=== PATIENT | male | born 1955 | race Caucasian/White ===

== ENCOUNTER 2016-12-21 13:18 | Observation (INO) | payer OTHER ==
[2016-12-21] MEDS ORDERED: ASPIRIN 81 MG TABLET, CHEWABLE PO ONE ×2 (13:31)
[2016-12-21] MEDS ORDERED: REGADENOSON INJ 0.4 MG/5 ML DISP.SYRIN IV ONE (13:42)
--- NOTE | 2016-12-21 13:42 | ER Document Report ---
ED General - General Chief Complaint: Chest Pain Stated Complaint: CHEST PAIN Mode of Arrival: Medic Information source: Patient Notes: Patient presents to the emergency department with complaints of dizziness vomiting and diaphoresis. Patient reports he woke up this morning with right sided neck and jaw pain. 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 While he was outside he became really dizzy, he sat down and the dizziness went away. He ran out of gas so he went to get gas and by the time he got home he was severely dizzy, felt like he was going to pass out. He sat on on on his porch and started vomiting and became very sweaty. Patient has a history of high blood pressure COPD diabetes and high cholesterol. Patient does smoke 1 ppd. Patient reports mom and dad are with a history of CAD. Patient reports "I'm not having any chest pain." TRAVEL OUTSIDE OF THE [place] IN LAST 30 DAYS: No - HPI Onset: Just prior to arrival Onset/Duration: Sudden Quality of pain: No pain - denies pain at this time Severity: None Associated symptoms: Nausea, Vomiting, Other - dizziness Exacerbated by: Denies Relieved by: Denies Similar symptoms previously: No Recently seen / treated by doctor: No - Related Data Allergies/Adverse Reactions: Sulfa (Sulfonamide Antibiotics) Allergy (Intermediate, Verified 12/21/16 15:11) RASH Past Medical History - General Information source: Patient - Social History Smoking Status: Current Every Day Smoker Cigarette use (# per day): Yes - 1 ppd Chew tobacco use (# tins/day): No Frequency of alcohol use: None Drug Abuse: None Lives with: Family Family History: CAD Patient has suicidal ideation: No Patient has homicidal ideation: No - Past Medical History Cardiac Medical History: Reports: Hx Hypercholesterolemia, Hx Hypertension Denies: Hx Coronary Artery Disease, Hx Heart Attack Pulmonary Medical History: Reports: Hx COPD Denies: Hx Asthma, Hx Bronchitis, Hx Pneumonia, Hx Tuberculosis Neurological Medical History: Denies: Hx Cerebrovascular Accident, Hx Seizures Endocrine Medical History: Reports: Hx Diabetes Mellitus Type 2 Renal/ Medical History: Reports: Hx Kidney Stones GI Medical History: Reports: Hx Gastroesophageal Reflux Disease, Hx Hiatal Hernia, Hx Ulcer - Peptic Musculoskeltal Medical History: Denies Hx Arthritis Past Surgical History: Reports: Hx Appendectomy, Hx Cholecystectomy. Denies: Hx Pacemaker - Immunizations Hx Diphtheria, Pertussis, Tetanus Vaccination: Yes Review of Systems - Review of Systems Notes: Review HPI for review of systems., All other systems negative Physical Exam - Vital signs Vitals: Resp 20 12/21/16 13:30 - Notes Notes: PHYSICAL EXAMINATION: GENERAL: no acute distress, nontoxic looking HEAD: Atraumatic, normocephalic. EYES: Pupils equal round extraocular movements intact, sclera anicteric, conjunctiva are normal. ENT: nares patent, oropharynx clear without exudates. Moist mucous membranes. NECK: Normal range of motion, supple without lymphadenopathy LUNGS: CTAB and equal. No wheezes rales or rhonchi. HEART: Tachy, denies chest pain ABDOMEN: Soft, no tenderness. No guarding, no rebound BACK: Denies pain, denies flank pain EXTREMITIES: Normal range of motion, no pitting edema. No cyanosis. NEUROLOGICAL: Cranial nerves grossly intact. Normal sensory/motor exams. PSYCH: Normal mood, normal affect. SKIN: Warm, Dry, normal turgor, no rashes or lesions noted Course - Re-evaluation Re-evalutation: 12/21/16 16:51 I have consulted the attending provider dr early per [facility] guidelines Patient reports he feels great now ready to go home. Denies pain and dizziness , Patient with elevated d-dimer CTA ordered after consult with dr early. 12/21/16 18:18 Dr. Briceño contacted for admission to telemetry ops. Patient up-to-date on plan of care. 12/21/16 18:22 Dr. Briceño here assessing patient. - Vital Signs Vital signs: Temp Pulse Resp BP Pulse Ox 98.1 F 82 21 H 135/86 H 92 12/21/16 18:45 12/21/16 13:35 12/21/16 18:45 12/21/16 18:45 12/21/16 18:45 - Laboratory Result Diagrams: 12/21/16 13:50 12/21/16 13:50 Laboratory results interpreted by me: 12/21/16 12/21/16 12/21/16 13:50 13:50 13:50 WBC 13.2 H RDW 14.7 H Seg Neutrophils % 85.7 H Lymphocytes % 5.8 L Absolute Neutrophils 11.3 H D-Dimer 0.85 H BUN 29 H Alkaline Phosphatase 147 H Creatine Kinase 38 L Urine Protein Urine Ketones Urine Blood 12/21/16 15:20 WBC RDW Seg Neutrophils % Lymphocytes % Absolute Neutrophils D-Dimer BUN Alkaline Phosphatase Creatine Kinase Urine Protein 100 H Urine Ketones 25 H Urine Blood LARGE H - Diagnostic Test Radiology reviewed: Image reviewed, Reports reviewed - IMPRESSION: NO ACUTE RADIOGRAPHIC FINDING IN THE CHEST - EKG Interpretation by Me EKG shows normal: Sinus rhythm When compared to previous EKG there are: No significant change Discharge - Discharge Clinical Impression: Dizziness Condition: Stable Disposition: ADMITTED OBSERVATION Admitting Provider: [facility] Unit Admitted: Telemetry
[2016-12-21 14:05] LABS: ABSOLUTE BASOPHILS # (AUTO) 0.1 10^3/uL (0.0-0.2); ABSOLUTE EOSINOPHILS # (AUTO) 0.1 10^3/uL (0.0-0.6); ABSOLUTE LYMPHOCYTES (AUTO) 0.8 10^3/uL (0.5-4.7); ABSOLUTE MONOCYTES (AUTO) 0.9 10^3/uL (0.1-1.4); ABSOLUTE NEUT (AUTO) 11.3 10^3/uL (1.7-8.2); BASOPHILS % (AUTO) 0.9 % (0-2); EOSINOPHILS % (AUTO) 0.9 % (0-6); HEMATOCRIT 46.7 % (37.9-51.0); HEMOGLOBIN 15.9 g/dL (13.5-17.0); LYMPHOCYTES % (AUTO) 5.8 % (13-45); MEAN CORPUSCULAR HEMOGLOBIN 29.2 pg (27.0-33.4); MEAN CORPUSCULAR HGB CONC 34.1 g/dL (32.0-36.0); MEAN CORPUSCULAR VOLUME 86 fl (80-97); MONOCYTES % (AUTO) 6.7 % (3-13); RED BLOOD COUNT 5.45 10^6/uL (4.35-5.55); RED CELL DISTRIBUTION WIDTH 14.7 % (11.5-14.0); SEGMENTED NEUTROPHILS % (AUTO) 85.7 % (42-78); WHITE BLOOD COUNT 13.2 10^3/uL (4.0-10.5)
[2016-12-21 14:20] LABS: PROTHROMBIN TIME 12.7 SEC (11.4-15.4)
[2016-12-21 14:21] LABS: PARTIAL THROMBOPLASTIN TIME 30.8 SEC (23.5-35.8)
[2016-12-21 14:23] LABS: D-DIMER 0.85 ug/mL (0.00-0.50)
[2016-12-21 14:25] LABS: ALANINE AMINOTRANSFERASE 26 U/L (21-72); ALBUMIN 4.2 g/dL (3.5-5.0); ALKALINE PHOSPHATASE 147 U/L (38-126); ANION GAP 12 (5-19); ASPARTATE AMINO TRANSFERASE 19 U/L (17-59); BILIRUBIN,TOTAL 0.5 mg/dL (0.2-1.3); BLOOD UREA NITROGEN 29 mg/dL (7-20); CARBON DIOXIDE 26 mmol/L (22-30); CHLORIDE 103 mmol/L (98-107); CREATINE KINASE 38 U/L (55-170); CREATININE RESULT 0.73 mg/dL (0.52-1.25); GLUCOSE 94 mg/dL (75-110); LIPASE 122.6 U/L (23-300); SODIUM 141.3 mmol/L (137-145)
[2016-12-21 14:31] LABS: POTASSIUM 4.4 mmol/L (3.6-5.0)
[2016-12-21 14:34] LABS: CREATINE KINASE MB 0.56 ng/mL (<4.55)
[2016-12-21 14:35] LABS: TROPONIN I < 0.012 ng/mL
[2016-12-21 15:44] LABS: APPEARANCE,URINE CLEAR; BILIRUBIN,URINE NEGATIVE (NEGATIVE); CALCIUM OXALATE CRYSTALS,URINE RARE /HPF; GLUCOSE, URINE NEGATIVE (NEGATIVE); KETONES,URINE 25 mg/dL (NEGATIVE); LEUKOCYTE ESTERASE,URINE NEGATIVE (NEGATIVE); NITRITE,URINE NEGATIVE (NEGATIVE); PROTEIN,URINE 100 mg/dL (NEGATIVE); UROBILINOGEN,URINE NEGATIVE mg/dL (<2.0)
[2016-12-21 15:45] LABS: URINE SPECIFIC GRAVITY 1.024
--- NOTE | 2016-12-21 17:40 | EKG REPORT ---
SEVERITY:- ABNORMAL ECG - SINUS OR ECTOPIC ATRIAL RHYTHM NONSPECIFIC INTRAVENTRICULAR CONDUCTION DELAY CONSIDER LEFT VENTRICULAR HYPERTROPHY BORDERLINE INFERIOR Q WAVES : Confirmed by: Amos Hill MD 21-Dec-2016 17:38:54
[2016-12-21] MEDS ORDERED: DEXTROSE 40% GEL 15 GM TUBE PO PRN ×2 (18:43)
[2016-12-21] MEDS ORDERED: DEXTROSE 50%-WATER 25 GM/50 ML DISP.SYRIN IV PRN ×2 (18:43)
[2016-12-21] MEDS ORDERED: IPRATROPIUM/ALBUTEROL 0.5-2.5 MG/3 ML AMPUL NEB PRN (18:43)
[2016-12-21] MEDS ORDERED: GLUCAGON,HUMAN RECOMB 1 MG INJ IM PRN (18:43)
[2016-12-21] MEDS ORDERED: ACETAMINOPHEN 325 MG TABLET PO PRN (18:43)
[2016-12-21] MEDS ORDERED: ONDANSETRON HCL INJ/PF 4 MG/2 ML SDV IV PRN (18:49)
[2016-12-21] MEDS ORDERED: MAGNESIUM HYDROXIDE SUSP 30 ML UDCUP PO PRN (18:49)
[2016-12-21] MEDS ORDERED: INSULIN LISPRO 100 UNIT/ML 3 ML VIAL SUBCUT PRN (18:49)
--- NOTE | 2016-12-21 19:08 | PDOC H&P ---
History of Present Illness Admission Date/PCP: 12/21/16 18:25 SHAHID BREWER Patient complains of: Dizziness History of Present Illness: BRENDON PAK is a 61 year old male presents from home with sudden onset of dizziness 2 and associated diaphoresis, palpitations, nausea with vomiting and palpitations. He states the second episode was far more intense the first lasted much longer until EMS arrived and he was given a nitroglycerin. He's ever had anything like this before. He was diagnosed with new onset diabetes in the last 2 weeks and started on metformin Kaylan, he notes nausea vomiting and diarrhea the first few days after taking the medication. He thought the symptoms were improving until today. He also notes that at the time of the first episode he was then using a log splitter autopilot firewood he had created yesterday. He denies true cardiac type chest pain but he does note his right neck and shoulder and arm are hurting he attributed that to right hand dominance using the chainsaw yesterday. Evaluation in the emergency department is largely unrevealing, his blood sugar was 94, 2 sets of cardiac enzymes are negative, EKG is nondiagnostic for acute ischemia but does show borderline Q waves in the inferior leads slurring of the S wave in lead 23 aVL and aVF, borderline left ventricular hypertrophy, and biphasic P wave in lead 2 with an inverted P wave in lead 3. His d-dimer was elevated leading to a CT angiography of the chest does show coronary calcifications, aortic arch calcifications but no dissection or aneurysm and no pulmonary emboli. His cardiac risk factors include his age, strong family history his father suffered his first heart attack in his 50s, heavy tobacco use of one pack per day for over 30 years, hypertension, new diabetes, hyperlipidemia. Therefore we were asked to admit the patient for further investigation. Past Medical History Cardiac Medical History: Reports: Hyperlipidema, Hypertension Denies: Coronary Artery Disease, Myocardial Infarction Pulmonary Medical History: Reports: Chronic Obstructive Pulmonary Disease (COPD) Denies: Asthma, Bronchitis, Pneumonia, Tuberculosis Neurological Medical History: Denies: Seizures Endocrine Medical History: Reports: Diabetes Mellitus Type 2 GI Medical History: Reports: Gastroesophageal Reflux Disease, Hiatal Hernia Musculoskeltal Medical History: Denies: Arthritis Hematology: Denies: Anemia Past Surgical History Past Surgical History: Reports: Appendectomy, Cholecystectomy Denies: Pacemaker Social History Lives with: Family Smoking Status: Current Every Day Smoker Cigarettes Packs Per Day: 1 Frequency of Alcohol Use: Heavy Amount of Alcoholic Beverages Per Day: 1-6 beers per day Hx Recreational Drug Use: No Hx Prescription Drug Abuse: No - Advance Directive Resuscitation Status: Full Code Family History Family History: CAD Parental Family History Reviewed: Yes Children Family History Reviewed: Yes Sibling(s) Family History Reviewed.: Yes Medication/Allergy Home Medications: Atorvastatin Calcium [Lipitor 20 mg Tablet] 20 mg PO QHS 06/10/12 Bc Powder 1 PO PRN 06/30/12 [place]-3 Fatty Acids/Fish Oil [Fish Oil 1,000 Mg Capsule] 1 each PO DAILY Omeprazole [Prilosec 20 mg Capsule] 20 mg PO DAILY 06/30/12 Cyclobenzaprine HCl [Flexeril 10 Mg Tablet] 10 mg PO TID #21 tablet 10/13/16 Tramadol HCl [Ultram 50 mg Tablet] 50 mg PO Q6HP PRN #30 tablet 10/13/16 Ondansetron [Zofran Odt 4 mg Tablet] 4 mg PO Q4HP PRN #20 tab.rapdis 10/28/16 Oxycodone HCl/Acetaminophen [Oxycodone-Acetaminophen 5-325] 1 each PO Q6 #20 tablet 10/28/16 Tamsulosin HCl [Flomax 0.4 mg Cap.sr] 0.4 mg PO DAILY #7 cap.sr.24h 10/28/16 Allergies/Adverse Reactions: Sulfa (Sulfonamide Antibiotics) Allergy (Intermediate, Verified 12/21/16 15:11) RASH Review of Systems Constitutional: ABSENT: chills, fever(s), headache(s), weight gain, weight loss Eyes: ABSENT: visual disturbances Ears: ABSENT: hearing changes Cardiovascular: PRESENT: as per HPI, palpitations. ABSENT: chest pain, dyspnea on exertion, edema, orthropnea Respiratory: ABSENT: cough, hemoptysis Gastrointestinal: ABSENT: abdominal pain, constipation, diarrhea, hematemesis, hematochezia, nausea, vomiting Genitourinary: ABSENT: dysuria, hematuria Musculoskeletal: ABSENT: joint swelling Integumentary: ABSENT: rash, wounds Neurological: ABSENT: abnormal gait, abnormal speech, confusion, dizziness, focal weakness, syncope Psychiatric: ABSENT: anxiety, depression Endocrine: ABSENT: cold intolerance, heat intolerance, polydipsia, polyuria Hematologic/Lymphatic: ABSENT: easy bleeding, easy bruising Physical Exam Vital Signs: Temp Pulse Resp BP Pulse Ox 98.1 F 82 21 H 135/86 H 92 12/21/16 18:45 12/21/16 13:35 12/21/16 18:45 12/21/16 18:45 12/21/16 18:45 PHYSICAL EXAM GENERAL: NAD; well developed, well nourished; no obese; alert and oriented to person, place, time, situation HEENT: normocephalic, atraumatic; EOMI, PERRLA, no conjunctival injection, no scleral icterus; oral mucosa moist, poor dentition; neck supple, no LAD, normal ROM RESPIRATORY: no accessory muscle use, no increased WOB, good air entry bilaterally; no wheezes, rales, rhonchi; no inspiratory crackles CARDIO: no JVD; RRR; 2/6 systolic murmur at the apex; no tachycardia VASCULAR: Bilateral carotid bruits; no abdominal bruit; no pallor; 2+ radial, DP pulse; normal capillary refill GI: soft; nondistended; normal bowel sounds; liver is enlarged to 3 cm below the costal margin, smooth and soft nontender; no rebound, rigidity, guarding; nontender NEURO: normal patella reflexes; normal sensation; normal motor function; MSK: 5/5 strength; normal ROM hips; ambulatory without assistance; no tenderness EXTREMITIES: no calf tender; no palpable cords in calf; no clubbing, cyanosis , pedal edema PSYCH: normal affect, normal mood SKIN: warm; moist; petechiae, telengectasias and livedo reticularis evident; no jaundice; Results Laboratory Results: Labs reviewed, mild leukocytosis, MCV is normal, INR is normal, chemistries and LFTs are normal aside from a mildly elevated phosphatase 147, O2 sats troponins are negative, lipase is normal, TSH is normal EKG Comments: See history of present illness Impressions: Chest X-Ray 12/21/16 13:31 IMPRESSION: NO ACUTE RADIOGRAPHIC FINDING IN THE CHEST. Chest/Abdomen CTA 12/21/16 16:50 IMPRESSION: NORMAL CTA OF THE CHEST. NO PULMONARY EMBOLI. EMPHYSEMATOUS CHANGES. MILD SCARRING. NO ACUTE FINDINGS. Status: Image reviewed by ny - CT of the chest and chest x-ray visualized agree with radiology Assessment & Plan - Diagnosis (1) Dizziness Is this a current diagnosis for this admission?: YesPlan: Possible anginal equivalent. Admit patient to telemetry to finish out serial cardiac enzymes. Assuming they remain negative we will perform a Cardiolite stress test in the morning. (2) Hepatomegaly Is this a current diagnosis for this admission?: YesPlan: Likely from chronic alcohol use given the physical findings, we'll check right upper quadrant ultrasound in the morning. (3) Hyperlipidemia Qualifiers: Hyperlipidemia type: unspecified Qualified Code(s): E78.5 - Hyperlipidemia, unspecified Is this a current diagnosis for this admission?: YesPlan: Check lipids in the morning (4) Hypertension Qualifiers: Hypertension type: unspecified secondary hypertension Qualified Code (s): I15.9 - Secondary hypertension, unspecified; I15 - Secondary hypertension Is this a current diagnosis for this admission?: YesPlan: Monitor and titrate home regimen to effect. Hold beta blockers in anticipation of stress test in the morning. (5) Diabetes Qualifiers: Diabetes mellitus type: type 2 Diabetes mellitus complication status: with unspecified complications Diabetes mellitus alf insulin use: without automotive parts person use Qualified Code(s): E11.8 - Type 2 diabetes mellitus with unspecified complications Is this a current diagnosis for this admission?: YesPlan: Check hemoglobin A1c in the morning, cover with sliding scale. (6) Tobacco dependence Is this a current diagnosis for this admission?: YesPlan: Start nicotine replacement, tobacco cessation counseling. - Time Time Spent: 50 to 70 Minutes Medications reviewed and adjusted accordingly: Yes Anticipated discharge: Home Within: within 48 hours
[2016-12-21 20:21] LABS: CREATINE KINASE MB 0.75 ng/mL (<4.55)
[2016-12-21 20:24] LABS: TROPONIN I < 0.012 ng/mL
[2016-12-22] MEDS ORDERED: INFLUENZA ADLT QUAD (36MOS+) 2016-17 VAC 0.5 ML SYR IM PRN (00:36)
[2016-12-22 01:30] LABS: CREATINE KINASE MB 0.48 ng/mL (<4.55); TROPONIN I 0.012 ng/mL
[2016-12-22] MEDS ORDERED: LANSOPRAZOLE 30 MG TAB.RAP.DR PO SCH (06:00)
[2016-12-22 07:10] LABS: CHOLESTEROL 203.24 mg/dL (0-200); Direct HDL 31 mg/dL (>40); TRIGLYCERIDES 114 mg/dL (<150)
[2016-12-22 07:21] LABS: DIRECT LDL 139 mg/dL (<100)
[2016-12-22] MEDS ORDERED: ENOXAPARIN SODIUM INJ 40 MG/0.4 ML DISP.SYRIN SUBCUT SCH (08:00)
--- NOTE | 2016-12-22 14:21 | DRAGON STRESS TEST REPORT ---
INTRAVENOUS LEXISCAN CARDIOLITE STRESS TEST USING SINGLE PHOTON EMMISION COMPUTERIZED TOMOGRAPHIC. DATE OF PROCEDURE: December 22, 2016 INDICATION : Chest pain CARDIAC RISK FACTORS: Diabetes, dyslipidemia RESTING EKG: Sinus rhythm, increased QRS voltage suggestive of LVH STRESS EKG: No significant changes noted with LexiScan bolus REASON FOR TERMINATION: Protocol. PROCEDURE REPORT: Baseline heart rate 94 beats per minute with blood pressure of 148/89. Patient had no significant complaints. Heart rate at 2 minutes post bolus 108 with a blood pressure of 134/77. 3 minutes post bolus heart rate 113 with blood pressure of 139/87. No significant EKG changes were noted. Patient had no significant complaints during the procedure or postprocedure. CONCLUSIONS: Normal EKG and hemodynamic response to IV LexiScan. NUCLEAR DATA: At rest the patient was given 11.83 millicuries of technetium 99 sestamibi injected intravenously. As per protocol rest gated SPECT images were obtained. Subsequently the patient was given intravenous LexiScan at a dose of 0.4 mg in 5 mL intravenously, followed by flush with normal saline. Subsequently the stress dose of 33.2 millicuries of technetium 99 sestamibi was injected intravenously. As per protocol stress gated images were obtained. NUCLEAR INTERPRETATION: Both raw and processed data were used for interpretation. Visual, qualitative, computer-generated quantitative data was used. There was good myocardial uptake of technetium compound. Motion artifact and soft tissue attenuations were noted. Increased visceral uptake was noted. No definitive areas of transient perfusion defect noted. Inferior wall moderate to severe fixed perfusion defect or scars noted. EKG gated imaging showed LV EF at 25 %, rest and stress gated EF similar visually. T. I D. ratio was 1.09. Lung heart ratio noted to be within normal limits 0.29. No significant extracardiac and abnormal radiotracer activities were noted. RV free wall uptake was noted to be WNL. IMPRESSION: Also refer to comments under nuclear interpretation. Also test results needs to be interpreted in the context of pretest probability. 1. There is no definitive scintigraphic evidence of LexiScan induced myocardial ischemia. 2. Moderate to severe fixed defect noted involving the inferior wall indicative of prior inferior wall myocardial infarction/scar. 3. EKG gated imaging shows left ejection fraction of approximately 25 %. 4. Clinical correlation requested as occasionally single vessel disease or balanced ischemia could be missed. In approximately 10% of the cases Lexiscan may not cause adequate vasodilatory stress. RECOMMENDATIONS: Aggressive risk factor modification, medical therapy. Low threshold for heart catheterization in view of reduced LVEF. Clinical correlation with echocardiogram derived ejection fraction. Inability to exercise by itself can lead to increased cardiovascular event risks. Consider cardiology consultation if clinically indicated. I AM AVAILABLE FOR CARDIOLOGY CONSULTATION AND FOLLOWUP IF REQUESTED BY PMD Amairani Meek M.D., [facility] Manager Developmental machine driller, Board certified in cardiovascular diseases, Nuclear cardiology, Echocardiography Cardiac CT and cardiac MRI Ph. [phone] [facility]
[2016-12-22 15:52] VITALS: BP 129/94
--- NOTE | 2016-12-22 16:22 | PDOC DISCHARGE SUMMARY ---
General - Admit/Disc Date/PCP Admission Date/Primary Care Provider: 12/21/16 18:43 MELQUIADES FIELDS, FINANCIAL ADMINISTRATOR Discharge Date: 12/22/16 - Discharge Diagnosis (1) Dizziness Is this a current diagnosis for this admission?: YesSummary: This is his presenting complaint and is likely multifactorial related to the items listed below. (2) Carotid artery stenosis without cerebral infarction Is this a current diagnosis for this admission?: YesSummary: Carotid ultrasound demonstrates a 70% stenosis on the right and no C. difficile again plaquing on the left. Will maximize statin therapy, start him on prophylactic aspirin and titrate his blood pressures to less than 125/85 while encouraging aggressive lifestyle modification. (3) Abdominal aortic aneurysm Is this a current diagnosis for this admission?: YesSummary: Allowing for differences in technique, the aneurysm appears to be unchanged. Aggressive lifestyle and risk modification as noted above. (4) Peripheral arterial disease Is this a current diagnosis for this admission?: YesSummary: Aggressive Risk modification as noted and with multiple vascular beds involved recommend outpatient referral to vascular surgery for further recommendations. (5) Ischemic cardiomyopathy Is this a current diagnosis for this admission?: YesSummary: EF on gated imaging only 25%. Cardiac like stress testing today showed old scar adversely affecting wall motion and no inducible ischemia. Strongly recommended Aggressive lifestyle and risk modification. We'll add low-dose LUCIUS inhibitor and Aldactone to help prevent further remodeling of the myocardium. We'll add low-dose beta marcel for its prophylactic effect as well as positive effect on his blood pressures. I highly recommend his PCP refer to interventional cardiology of choice for ongoing evaluation and management including possible outpatient heart catheter. Prophylactic aspirin 81 mg daily and instructed to stop BC powders and Goody powders as his salicylate level was upper limit of normal at 16. Encouraged to use Tylenol at less than 3 g daily for chronic aches and pains including headaches. The patient reports a chronic morning headaches, daytime sleepiness and easy fatigability. His reports he snores loudly and never seems to get into a deep sleep, will occasionally snort himself awake. She denies apneic episodes. However with all the risk factors we have identified above strongly suspect obstructive sleep apnea and encourage an outpatient sleep study, we'll defer to his PCP to make the appropriate referrals. (6) Hepatomegaly Is this a current diagnosis for this admission?: YesSummary: Likely secondary to chronic alcohol exposure, documented on right upper quadrant ultrasound at 17.4 cm, no scarring noted parenchyma otherwise noted normal implying alcohol cessation would be of some benefit. (7) Hyperlipidemia Is this a current diagnosis for this admission?: YesSummary: Maximize the dose of atorvastatin, follow-up LFTs as an outpatient. Follow up with his primary care provider for additional titration. (8) Hypertension Is this a current diagnosis for this admission?: YesSummary: Adjust his regimen as noted above. Follow up with his PCP for further titration. (9) Diabetes Is this a current diagnosis for this admission?: YesSummary: Hemoglobin A1c is 6.0 and since the metformin was only started in the last 10 days likely cannot account for this improvement. Likewise I feel like many of his symptoms can be attributed to the metformin and therefore recommended discontinuation of that medication, diet and lifestyle changes, and follow-up with his primary care provider for repeat Depo but A1c in 2-3 months. (10) Tobacco dependence Is this a current diagnosis for this admission?: YesSummary: Tobacco cessation counseling for approximately 10 minutes at the bedside with his present, nicotine replacement therapy offered, patient will consider. (11) Alcohol dependence with alcohol-induced disorder Is this a current diagnosis for this admission?: YesSummary: With hepatomegaly. He was encouraged to gradually eliminate alcohol from his routine by cutting his dose in half every 7-10 days until off. - Additional Information Resuscitation Status: Full Code Discharge Diet: Cardiac Discharge Activity: Activity As Tolerated, Balance Activity w/Rest Home Medications: Omeprazole [Prilosec 20 mg Capsule] 20 mg PO DAILY 06/30/12 Albuterol Sulfate [Ventolin Hfa] 1 - 2 puff IH DAILY 12/21/16 Ergocalciferol (Vitamin D2) [Vitamin D2] 50,000 unit PO DAILY 12/21/16 Fluticasone/Vilanterol [Breo Ellipta 100-25 Mcg INH] 1 puff IN DAILY 12/21/16 Acetaminophen [Tylenol 325 mg Tablet] 650 mg PO Q4HP PRN tablet 12/22/16 Aspirin [Adult Low Dose Aspirin EC] 81 mg PO DAILY #30 tablet. 12/22/16 Atorvastatin Calcium [Lipitor 20 mg Tablet] 80 mg PO QHS #30 12/22/16 Carvedilol 3.125 mg PO BID #60 tablet 12/22/16 Lisinopril 5 mg PO DAILY #30 tablet 12/22/16 Spironolactone [Aldactone 25 mg Tablet] 25 mg PO DAILY #30 tablet 12/22/16 History of Present Illness Patient complains of: Dizziness and near syncope History of Present Illness: BRENDON PAK is a 61 year old male presents from home with sudden onset of dizziness 2 and associated diaphoresis, palpitations, nausea with vomiting and palpitations. He states the second episode was far more intense the first lasted much longer until EMS arrived and he was given a nitroglycerin. He's ever had anything like this before. He was diagnosed with new onset diabetes in the last 2 weeks and started on metformin Thursday, he notes nausea vomiting and diarrhea the first few days after taking the medication. He thought the symptoms were improving until today. He also notes that at the time of the first episode he was then using a log splitter autopilot firewood he had created yesterday. He denies true cardiac type chest pain but he does note his right neck and shoulder and arm are hurting he attributed that to right hand dominance using the chainsaw yesterday. Evaluation in the emergency department is largely unrevealing, his blood sugar was 94, 2 sets of cardiac enzymes are negative, EKG is nondiagnostic for acute ischemia but does show borderline Q waves in the inferior leads slurring of the S wave in lead 23 aVL and aVF, borderline left ventricular hypertrophy, and biphasic P wave in lead 2 with an inverted P wave in lead 3. His d-dimer was elevated leading to a CT angiography of the chest does show coronary calcifications, aortic arch calcifications but no dissection or aneurysm and no pulmonary emboli. His cardiac risk factors include his age, strong family history his father suffered his first heart attack in his 50s, heavy tobacco use of one pack per day for over 30 years, hypertension, new diabetes, hyperlipidemia. Therefore we were asked to admit the patient for further investigation. Hospital Course Hospital Course: Patient was admitted to a cardiac monitored floor and showed no signs of significant cardiac dysrhythmia however he does show a sinus arrhythmia with frequent PACs. 3 sets cardiac enzymes were negative for acute ischemia. His EKG shows Q-wave in the inferior leads but no other signs of acute ischemia like ST elevation or depression or T-wave inversions. He underwent a Cardiolite stress test this morning that shows no inducible ischemia however a significant scar is noted resulting in reduced ejection fraction of only 25%. He is also noted to have a bilateral right greater than left carotid bruits though it was unclear whether this was referred from his cardiac murmur heard best at the apex, nevertheless he was referred for Dopplers of the carotid arteries which showed stenosis of the right at 70% and no CVA plaquing on the left with good vertebral flow bilaterally. He also has palpable hepatomegaly approximately 3 cm below costal margin and so a ultrasound of the abdomen was performed which indeed confirms hepatomegaly at 17.47 L but incidentally noted is an abdominal aortic aneurysm measuring 5 cm in greatest dimension by Doppler ultrasound; when compared to CT scan performed in October 2016 it measured 4.7 cm so allowing for differences in technique it would be considered unchanged. He does however warranted routine screening exams of similar modality in the future. We'll defer to his PCP and/or vascular surgeon for further evaluation and monitoring. A lipid panel was checked and shows poor control with total cholesterol of 203 triglycerides 114 LDL of 139 and an HDL of 31. In light of the above findings his Lipitor was maximized to 80 mg daily. He will need routine LFTs and outpatient follow-up to further titrate as needed per his PCP. The patient notes many of his symptoms started shortly after initiation of metformin therapy, hemoglobin A1c shows good control at 6.0 and his recommended he discontinue the medication to remove it as a confounder for now. He'll need repeat hemoglobin A1c in 2-3 months after he makes appropriate diet and lifestyle changes to see if reinitiation of an oral regimen is appropriate. Due to elevated d-dimer in the emergency department he was sent for CT angiography that showed no evidence of pulmonary emboli but does show emphysematous changes and some mild scarring of the pulmonary parenchyma. Incidentally noted on CTA is calcifications of the aortic arch but difficult to assess for coronary calcifications. The patient was counseled at the bedside both on admission and prior to discharge for at least 10 minutes with present regarding tobacco cessation. It is recommended that he cut his use of tobacco in half on a weekly basis until his less than 5 cigarettes a which point he can stop altogether. I offered him nicotine replacement therapy but he would take that into consideration would like to discuss with his and with his primary care provider. The patient had no recurrence of his symptoms during his hospitalization including during a stress testing and at present his hemodynamic was stable for discharge. In light of the multiple incidental findings significant change to his medical regimen is been made, please see medical reconciliation for details. He is to follow-up with his primary care provider in one week, return to the emergency department for chest pain or worsening recurrent symptoms. I strongly recommend outpatient referral to interventional cardiology, vascular surgery, and sleep study lab for evaluation of suspected sleep apnea. Will defer to his PCP and [facility] to make the appropriate outpatient referrals. In the meantime strongly recommend aggressive lifestyle and risk modification. I spent 40 minutes at the bedside discussing the patient's results, answering both he and his 's questions to the best of my ability. They state clear understanding and willingness to comply with medical direction. They seem satisfied with care he received while here. They expressed no concerns to me about going home today. He is not interested in pursuing invasive interventions at this time choosing instead to adjust his lifestyle and try the medications first, fully understanding the risks associated including progression of his disease, worsening cardiomyopathy and even sudden cardiac . If his EF does not respond to medical therapy consideration should be made for anticoagulation and invasive cardiac evaluation at that time. Physical Exam Vital Signs: Temp Pulse Resp BP Pulse Ox 97.3 F 95 16 129/94 H 94 12/22/16 15:48 12/22/16 15:48 12/22/16 15:48 12/22/16 15:48 12/22/16 15:48 Intake & Output 12/21/16 12/22/16 12/23/16 06:59 06:59 06:59 Intake Total 306 Balance 306 Weight 69.3 kg PHYSICAL EXAM GENERAL: NAD; well developed, well nourished; no obese; alert and oriented to person, place, time, situation HEENT: normocephalic, atraumatic; EOMI, PERRLA, no conjunctival injection, no scleral icterus; oral mucosa moist, poor dentition; neck supple, no LAD, normal ROM RESPIRATORY: no accessory muscle use, no increased WOB, good air entry bilaterally; no wheezes, rales, rhonchi; no inspiratory crackles CARDIO: no JVD; RRR; 2/6 systolic murmur at the apex; no tachycardia VASCULAR: Bilateral right greater than left carotid bruits; no abdominal bruit; no pallor; 2+ radial, pulse; normal capillary refill GI: soft; nondistended; normal bowel sounds; liver is enlarged to 3 cm below the costal margin, smooth and soft nontender; no rebound, rigidity, guarding; abdomen nontender NEURO: normal patella reflexes; normal sensation; normal motor function; MSK: 5/5 strength; normal ROM hips; ambulatory without assistance; no tenderness EXTREMITIES: no calf tender; no palpable cords in calf; no clubbing, cyanosis , pedal edema PSYCH: normal affect, normal mood SKIN: warm; moist; petechiae, telengectasias and livedo reticularis evident about the neck and shoulders; no jaundice Results Laboratory Results: 12/22/16 06:27 Triglycerides 114 Cholesterol 203.24 H LDL Cholesterol Direct 139 H VLDL Cholesterol 23.0 HDL Cholesterol 31 L 12/21/16 12/21/16 12/22/16 19:21 19:21 00:49 Creatine Kinase 35 L 37 L CK-MB (CK-2) 0.75 Troponin I < 0.012 12/22/16 00:49 Creatine Kinase CK-MB (CK-2) 0.48 Troponin I 0.012 Impressions: Chest X-Ray 12/21/16 13:31 IMPRESSION: NO ACUTE RADIOGRAPHIC FINDING IN THE CHEST. Chest/Abdomen CTA 12/21/16 16:50 IMPRESSION: NORMAL CTA OF THE CHEST. NO PULMONARY EMBOLI. EMPHYSEMATOUS CHANGES. MILD SCARRING. NO ACUTE FINDINGS. Abdomen Ultrasound 12/22/16 00:00 IMPRESSION: 1. Abdominal aortic aneurysm. Largest diameter by ultrasound is 5.0 x 4.7 cm. This was suggest an increase in size from October 2016. There are no prior ultrasounds for comparison. Correlation with CT may be beneficial. 2. Nonobstructing right renal stone. Carotid Doppler Study 12/22/16 00:00 IMPRESSION: 1. Greater than 70% stenosis in the right internal carotid artery. 2. No hemodynamically significant stenosis on the left. Status: Imported from [facility] BEING DISCHARGED WITH ANY OF THE FOLLOWING DIAGNOSIS?: No VTE patient discharged on overlapping Therapy?: Yes Plan Discharge Plan: Discharge plan outlined above. Time Spent: Greater than 30 Minutes - Half this time spent in consultation with the patient and his at the bedside
--- NOTE | 2017-01-04 14:21 | Progress Note ---
Provider Note Provider Note: Vascular lab accreditation audit was complete and mailed. Carotid stenosis. Patient was discharged on aspirin and statin and was referred to primary care provider for referral.
== END 2016-12-22 16:47 | disposition home or self-care (01) ==
LOC: ER 13:18 → EH 18:25 → UNDOADMOB 18:25 → EH 18:43 → 4S 20:21 → EH 20:21
DX: R07.89 Other chest pain (principal); R42 Dizziness and giddiness; I65.21 Occlusion and stenosis of right carotid artery; I71.4 Abdominal aortic aneurysm, without rupture; I73.9 Peripheral vascular disease, unspecified; I25.5 Ischemic cardiomyopathy; E78.5 Hyperlipidemia, unspecified; I10 Essential (primary) hypertension; E11.9 Type 2 diabetes mellitus without complications; Z79.84 Long term (current) use of oral hypoglycemic drugs; F17.210 Nicotine dependence, cigarettes, uncomplicated; F10.288 Alcohol dependence with other alcohol-induced disorder; R16.0 Hepatomegaly, not elsewhere classified; Z71.6 Tobacco abuse counseling; J44.9 Chronic obstructive pulmonary disease, unspecified; K21.9 Gastro-esophageal reflux disease without esophagitis
CPT/HCPCS: 93005; 99285; 36415 ×2; 87040; 82553 ×2; 82962 ×2; 82550 ×2; 83690; 83735; 80307; 84443; 85025; 85610; 85730; 80053; 81001; 84484 ×2; 83036; 85379; 80061; 83880; 93017; 93880; 71010; 76705; 78452; 71275; 93010; G0378 ×3; A9500; J2785; J1650; J3490 ×2; Q9969

== ENCOUNTER 2018-03-31 09:22 | Day surgery (SDC) | payer OTHER ==
[~2018-03-31 09:22] MED LIST: CHONDR SU A NA/HYALUR INTRAOC KIT (SURGICARE) ONE; EPINEPHRINE INJ/PF 1 MG/1 ML AMPULE ONE; KETOROLAC TROMETHAMINE 0.45% 4 DROP/0.4 ML DROPERETTE OD PRN; LIDOCAINE 1% INJ-PF (10 MG/ML) 30 ML SDV ONE; MIDAZOLAM 2 MG/2 ML INJ ONE; TOBRAMYCIN SULFATE/DEXAMETH OPH OINTMENT 3.5 GM ONE
[2018-03-31] MEDS: CYCLOPENTOLATE 0.2%/PHENYLEPHRINE 1% OPH SOLN 2 ML OD PRN ×3 (09:37→10:21)
[2018-03-31] MEDS: TROPICAMIDE 1% OPH SOLN 3 ML OD PRN ×3 (09:37→10:21)
[2018-03-31] MEDS: BESIFLOXACIN HCL 0.6% OPH SUSP 5 ML BOTTLE OD PRN ×3 (09:38→10:51)
[2018-03-31] MEDS: TETRACAINE HCL 0.5% OPH SOLN 0.6 ML DROPERETTE OD PRN ×3 (09:39→10:31)
[2018-03-31] MEDS ORDERED: LIDOCAINE 1%/PHENYLEPHRINE 1.5% 1 ML VIAL ONE (09:56)
[2018-03-31] MEDS ORDERED: ALBUTEROL SULFATE 0.083% NEB 2.5 MG/3 ML AMPUL NEB ONE (10:10)
== END 2018-03-31 11:28 | disposition home or self-care (01) ==
LOC: SC 09:22
PROVIDERS: ATTEND Ophthalmology
DX: H25.11 Age-related nuclear cataract, right eye (principal); I10 Essential (primary) hypertension; K21.9 Gastro-esophageal reflux disease without esophagitis; E78.00 Pure hypercholesterolemia, unspecified; F17.210 Nicotine dependence, cigarettes, uncomplicated; Z79.899 Other long term (current) drug therapy; Z79.82 Long term (current) use of aspirin
CPT/HCPCS: 66984; V2630; J2250; J3490 ×3; J0171; J2370; 142

== ENCOUNTER 2018-04-14 08:09 | Day surgery (SDC) | payer OTHER ==
[~2018-04-14 08:09] MED LIST changes: -KETOROLAC TROMETHAMINE 0.45% 4 DROP/0.4 ML DROPERETTE OD PRN; +KETOROLAC TROMETHAMINE 0.45% 4 DROP/0.4 ML DROPERETTE OS PRN; -MIDAZOLAM 2 MG/2 ML INJ ONE; -TOBRAMYCIN SULFATE/DEXAMETH OPH OINTMENT 3.5 GM ONE
[2018-04-14] MEDS: CYCLOPENTOLATE 0.2%/PHENYLEPHRINE 1% OPH SOLN 2 ML OS PRN ×3 (08:56→09:16)
[2018-04-14] MEDS: TROPICAMIDE 1% OPH SOLN 3 ML OS PRN ×3 (08:56→09:16)
[2018-04-14] MEDS: BESIFLOXACIN HCL 0.6% OPH SUSP 5 ML BOTTLE OS PRN ×4 (08:57→09:45)
[2018-04-14] MEDS: TETRACAINE HCL 0.5% OPH SOLN 0.6 ML DROPERETTE OS PRN ×3 (09:00→09:28)
[2018-04-14] MEDS ORDERED: MIDAZOLAM 2 MG/2 ML INJ ONE (09:11)
[2018-04-14] MEDS ORDERED: FENTANYL CITRATE INJ/PF 100 MCG/2 ML AMPUL ONE (09:11)
[2018-04-14] MEDS: TOBRAMYCIN SULFATE/DEXAMETH OPH OINTMENT 3.5 GM ONE ×2 (09:37→09:45)
== END 2018-04-14 10:20 | disposition home or self-care (01) ==
LOC: SC 08:09
PROVIDERS: ATTEND Ophthalmology
DX: H25.12 Age-related nuclear cataract, left eye (principal); Z98.41 Cataract extraction status, right eye; F17.210 Nicotine dependence, cigarettes, uncomplicated; I10 Essential (primary) hypertension; K21.9 Gastro-esophageal reflux disease without esophagitis; E78.00 Pure hypercholesterolemia, unspecified; Z79.899 Other long term (current) drug therapy; Z88.2 Allergy status to sulfonamides; Z79.02 Long term (current) use of antithrombotics/antiplatelets; Z79.82 Long term (current) use of aspirin
CPT/HCPCS: 66984; V2630; J2250; J3490 ×3; J0171; J3010; 142

== ENCOUNTER 2020-02-21 12:36 | Emergency (ER) | payer MEDICARE, OTHER ==
[2020-02-21] MEDS ORDERED: KETOROLAC TROMETHAMINE INJ/PF 30 MG/1 ML SDV IV ONE (12:49)
[2020-02-21] MEDS ORDERED: ONDANSETRON HCL INJ/PF 4 MG/2 ML SDV IV ONE (12:49)
--- NOTE | 2020-02-21 12:51 | ER Document Report ---
ED GI/ - General Chief Complaint: Flank Pain Stated Complaint: LEFT FLANK PAIN,BLOOD IN URINE Time Seen by Provider: 02/21/20 12:43 Primary Care Provider: SHAMA GARCIA MD [NO LOCAL MD] - Follow up tomorrow JULIA SMITH MD [Primary Care Provider] - Follow up as needed Notes: Patient presents with left flank pain off and on for the past week that worsened over the past few days. Patient does report nausea with vomiting x1 episode today. Patient does report hematuria. No fever. Patient denies any cough or cold symptoms, no chest pain. Patient states he has a history of kidney stones but the last kidney stone he has had is been over 4 years ago. TRAVEL OUTSIDE OF THE [place] IN LAST 30 DAYS: No - Related Data Allergies/Adverse Reactions: Sulfa (Sulfonamide Antibiotics) Allergy (Intermediate, Verified 12/21/16 15:11) RASH Past Medical History - General Information source: Patient - Social History Smoking Status: Current Every Day Smoker Frequency of alcohol use: None Drug Abuse: None Occupation: Retired Family History: CAD - Past Medical History Cardiac Medical History: Reports: Hx Hypercholesterolemia, Hx Hypertension - MEDICATED Denies: Hx Coronary Artery Disease, Hx Heart Attack Pulmonary Medical History: Reports: Hx COPD Denies: Hx Asthma, Hx Bronchitis, Hx Pneumonia, Hx Tuberculosis Neurological Medical History: Denies: Hx Cerebrovascular Accident, Hx Seizures Endocrine Medical History: Reports: Hx Diabetes Mellitus Type 2 Renal/ Medical History: Reports: Hx Kidney Stones GI Medical History: Reports: Hx Gastroesophageal Reflux Disease. Denies: Hx Hepatitis, Hx Hiatal Hernia, Hx Ulcer Musculoskeletal Medical History: Denies Hx Arthritis Psychiatric Medical History: Denies: Hx Depression Infectious Medical History: Denies: Hx Hepatitis Past Surgical History: Reports: Hx Appendectomy, Hx Cholecystectomy. Denies: Hx Open Heart Surgery, Hx Pacemaker - Immunizations Hx Diphtheria, Pertussis, Tetanus Vaccination: Yes Review of Systems - Review of Systems Constitutional: No symptoms reported. denies: Fever, Recent illness EENT: No symptoms reported Cardiovascular: No symptoms reported Respiratory: No symptoms reported. denies: Cough, Short of breath Gastrointestinal: Nausea, Vomiting. denies: Abdominal pain Genitourinary: Flank pain, Hematuria. denies: Dysuria Male Genitourinary: No symptoms reported Musculoskeletal: Back pain Skin: No symptoms reported Hematologic/Lymphatic: No symptoms reported Neurological/Psychological: No symptoms reported Physical Exam - Vital signs Vitals: Temp Pulse Resp BP Pulse Ox 97.6 F 93 20 142/84 H 97 02/21/20 12:41 02/21/20 12:41 02/21/20 12:41 02/21/20 12:41 02/21/20 12:41 - General General appearance: Appears well, Alert In distress: None - HEENT Head: Normocephalic, Atraumatic Eyes: Normal Conjunctiva: Normal Nasal: Normal Mouth/Lips: Normal Mucous membranes: Normal Neck: Normal, Supple - Respiratory Respiratory status: No respiratory distress Chest status: Nontender Breath sounds: Normal. No: Rales, Stridor, Wheezing Chest palpation: Normal. No: [place] frothy sputum - Cardiovascular Rhythm: Regular Heart sounds: S1 appreciated, S2 appreciated - Abdominal Inspection: Normal Tenderness: Nontender - Back Back: CVA tenderness - Left - Extremities General upper extremity: Normal inspection, Normal ROM General lower extremity: Normal inspection, Normal ROM - Neurological Neuro grossly intact: Yes Cognition: Normal [place] Coma Scale Eye Opening: Spontaneous [place] Coma Scale Verbal: Oriented Shay Coma Scale Motor: Obeys Commands Shay Coma Scale Total: 15 - Psychological Associated symptoms: Normal affect, Normal mood - Skin Skin Temperature: Warm Skin Moisture: Dry Skin Color: Normal Course - Re-evaluation Re-evalutation: 02/21/20 14:48 Patient with obstructing stones left worse than right with mild leukocytosis and urine positive for race leukocyte esterase with 92 WBCs, call placed to [facility] [place] transfer line for consultation with urology. 02/21/20 14:49 02/21/20 15:[address] Africa Garcia who is on for urology at [facility]. Recommends having patient follow-up in the office, does not feel patient has emergent medical transfer needed at this time as patient is afebrile with stable vital signs and is nontoxic in appearance. Patient comfortable and feels that he can manage his pain symptoms at home at this time. Discussed plan of care with patient. Good return precautions discussed. Patient verbalized understanding is agreeable with plan of care. Provided with a copy of his CT report so that he can follow-up with his primary doctor for further evaluation of CT scan findings. 02/21/20 15:24 - Vital Signs Vital signs: Temp Pulse Resp BP Pulse Ox 97.6 F 93 20 142/84 H 97 02/21/20 12:41 02/21/20 12:41 02/21/20 12:41 02/21/20 12:41 02/21/20 12:41 - Laboratory Result Diagrams: 02/21/20 13:32 02/21/20 13:32 Laboratory results interpreted by me: 02/21/20 02/21/20 02/21/20 13:32 13:32 13:32 WBC 12.5 H RDW 15.7 H Lymph % (Auto) 5.4 L Absolute Neuts (auto) 10.5 H Seg Neutrophils % 83.8 H BUN 24 H Glucose 123 H Urine Protein 30 H Urine Blood LARGE H Urine Urobilinogen 2.0 H Ur Leukocyte Esterase TRACE H Urine Ascorbic Acid 40 H Labs- Entire Visit 02/21/20 02/21/20 02/21/20 13:32 13:32 13:32 WBC 12.5 H RBC 4.99 Hgb 15.4 Hct 43.6 MCV 87 MCH 30.8 MCHC 35.2 RDW 15.7 H Plt Count 295 Lymph % (Auto) 5.4 L Mcmullen % (Auto) 8.7 Eos % (Auto) 1.4 Baso % (Auto) 0.7 Absolute Neuts (auto) 10.5 H Absolute Lymphs (auto) 0.7 Absolute Monos (auto) 1.1 Absolute Eos (auto) 0.2 Absolute Basos (auto) 0.1 Seg Neutrophils % 83.8 H Sodium 139.7 Potassium 3.9 Chloride 103 Carbon Dioxide 27 Anion Gap 10 BUN 24 H Creatinine 0.96 Est GFR ( Amer) > 60 Est GFR (MDRD) Non-Af > 60 Glucose 123 H Calcium 9.8 Total Bilirubin 0.7 Direct Bilirubin 0.0 Neonat Total Bilirubin Not Reportable Neonat Direct Bilirubin Not Reportable Neonat Indirect Bili Not Reportable AST 25 ALT 17 Alkaline Phosphatase 113 Total Protein 6.9 Albumin 4.2 Urine Color YELLOW Urine Appearance SLIGHTLY-CLOUDY Urine pH 5.0 Ur Specific [place] 1.014 Urine Protein 30 H Urine Glucose (UA) NEGATIVE Urine Ketones NEGATIVE Urine Blood LARGE H Urine Nitrite NEGATIVE Urine Bilirubin NEGATIVE Urine Urobilinogen 2.0 H Ur Leukocyte Esterase TRACE H Urine WBC (Auto) 92 Urine RBC (Auto) >182 U Hyaline Cast (Auto) 11 Urine Ascorbic Acid 40 H - Diagnostic Test Radiology reviewed: Reports reviewed Discharge - Discharge Clinical Impression: Ureteral stone, Flank pain Condition: Stable Disposition: HOME, SELF-CARE Additional Instructions: Return immediately for any new or worsening symptoms Followup with your primary care provider, call tomorrow to make a followup appointment Follow-up with the urologist Dr. Shama Garcia, call tomorrow to make a follow- up appointment. Their office number is [phone]. KIDNEY STONE: You are passing or have passed a kidney stone. These stones are usually due to increased calcium or uric acid concentrations in your urine. Stones within the kidney itself are not painful. The pain occurs as the stone leaves the kidney to pass down the long tube, called the ureter, leading to the bladder. If the stone is small, it will usually pass by itself. Most patients can pass the stone at home. You will usually receive medications for pain, nausea or vomiting, and sometimes a medication to assist in passing the kidney stone. However, if the pain is very severe or if vomiting prevents you from taking oral pain medications, you may need to return for further treatment. Drink three or four quarts of fluids per day. You will be given pain medication (if needed) and urine strainers. Strain all your urine to see if the stone passes. If your doctor has asked you to bring the stone in for analysis, return with the stone once it has passed. Return if pain or vomiting become severe, if you develop a high fever, if you are unable to pass your urine, or if other unusual symptoms occur. TORADOL INJECTION: You have been given an injection of ketorolac tromethamine (Toradol). This is an excellent, safe drug for pain control. It also has potent antiinflammatory action. You should have significant pain relief within about one hour. Toradol is not addicting and is non-sedating. It does not interfere with driving or work. Call or return if you develop itching, hives, shortness of breath, or rash. PAIN MEDICATION INJECTION: You have received an injection of a pain medication. You should experience significant pain relief within 45 minutes. This drug is a narcotic -- it will impair your judgement, slow your reaction time and make you sleepy (as well as relieve your pain). Narcotics also can cause nausea. You should not drive, work with machinery, or perform any task requiring mental alertness until all effects of the medication are gone -- six to eight hours. Do not take any alcohol, or sedatives, and do not take any other medication without checking with your physician. [place] MEDICATION: You have been given a medication to suppress nausea and vomiting. This type of medication can be given as a shot, pill, or suppository. It will usually last for many hours. Pills and shots usually last six to eight hours, suppositories last about 12 hours. For the typical illness, only one or two doses of the medication may be necessary. Mild lightheadedness may occur. This type of medicine can cause drowsiness. Do not drive or operate dangerous machinery while under its influence. Do not mix with alcohol. See your doctor at once if you have muscle spasms or tightness, or uncontrollable motions (particularly of the neck, mouth, or jaw). Persistent vomiting or severe lightheadedness should also be evaluated by the physician. ORAL NARCOTIC MEDICATION: You have been given a prescription for pain control. This medication is a narcotic. It's best taken with food, as nausea can result if taken on an empty stomach. Don't operate machinery or drive within six hours of taking this medication. Do not combine this medicine with alcohol, or with any medication which can cause sedation (such as cold tablets or sleeping pills) unless you get permission from the physician. Narcotics tend to cause constipation. If possible, drink plenty of fluids and eat a diet high in fiber and fruits. Please be aware that prescription narcotics also have the potential for abuse. People become addicted to these medications because of the general sense of wellbeing that they induce. This feeling along with a significant reduction in tension, anxiety, and aggression provides a stimulating seductive quality to these drugs. Once your pain is under control, we encourage you to discard your unused narcotics. FOLLOW-UP CARE: If you have been referred to a physician for follow-up care, call the physicians office for an appointment as you were instructed or within the next two days. If you experience worsening or a significant change in your symptoms, notify the physician immediately or return to the Emergency Department at any time for re-evaluation. Prescriptions: Cefdinir 300 mg PO BID #20 capsule Hydrocodone/Acetaminophen [[place] 5-325 mg Tablet] 1 tab PO Q6 PRN #15 tablet PRN Reason: Ondansetron [Zofran Odt 4 mg Tablet] 1 tab PO Q6H #15 tab.rapdis Referrals: JULIA SMITH MD [Primary Care Provider] - Follow up as needed SHAMA GARCIA MD [NO LOCAL MD] - Follow up tomorrow
--- NOTE | 2020-02-21 13:24 | RADIOLOGY REPORT (SQ) ---
EXAM DESCRIPTION: CT ABD/PELVIS NO ORAL OR IV IMAGES COMPLETED DATE/TIME: 02/21/2020 1:09 pm REASON FOR STUDY: L flank pain, hematuria COMPARISON: 10/13/2016 TECHNIQUE: CT scan of the abdomen and pelvis performed without intravenous or oral contrast. Images reviewed with lung, soft tissue, and bone windows. Reconstructed coronal and sagittal MPR images revi ewed. All images stored on PACS. All CT scanners at this facility use dose modulation, iterative reconstruction, and/or weight based d osing when appropriate to reduce radiation dose to as low as reasonably achievable (ALARA). [facility]: Dose Right [facility]: CareDose [facility]: Dose Right [facility]: Teradose 4D [facility]: Smart [employer] RADIATION DOSE: CT Rad equipment meets quality standard of care and radiation dose reduction techniq ues were employed. CTDIvol: 5.3 mGy. DLP: 277 mGy-cm.mGy. LIMITATIONS: None. FINDINGS: LOWER CHEST: No significant findings. No nodules or infiltrates. NON-CONTRASTED LIVER, SPLEEN, ADRENALS: There is pneumobilia which is increased since prior study. A drenals and spleen are unremarkable. PANCREAS: No masses. No peripancreatic inflammatory changes. GALLBLADDER: Surgically absent. RIGHT KIDNEY AND URETER: No suspicious masses. Assessment limited by lack of IV contrast. Small non obstructing right renal calculi. There is a small at least partially obstructing stone in the proxim al right ureter. This measures 2.1 mm in diameter. There is mild right perinephric stranding very mild prominence of the right renal pelvis. LEFT KIDNEY AND URETER: No suspicious masses. Assessment limited by lack of IV contrast. Nonobstruc ting left renal calculi. There is an accepting 7 mm left UVJ stone. Hounsfield units measure 688. There is moderate left-sided hydronephrosis and fairly extensive perinephric stranding. Cortical cy st is again noted and unchanged. AORTA AND RETROPERITONEUM: Endovascular stent graft is in place. Bilateral renal stents are in place . Largest sac diameter is approximately 4.1 x 4.4 cm. BOWEL AND PERITONEAL CAVITY: No obvious masses or inflammatory changes. No free fluid. APPENDIX: Surgically absent. PELVIS, BLADDER, AND ABDOMINAL WALL:No abnormal masses. No free fluid. Bladder normal. BONES: No significant findings. OTHER: No other significant finding. IMPRESSION: 1. Just under 7 mm left UVJ stone with moderate left-sided hydronephrosis and perinephr ic stranding. Additional nonobstructing left renal calculi. 2. Probably partially obstructing 2.1 mm proximal right ureteral stone with very mild dilatation of the right renal pelvis. There is mild right perinephric stranding. In addition there are small nono bstructing right renal calculi. 3. Since prior CT the patient has undergone endovascular stent graft placement. Sac diameter is 4.1 x 4.4 cm. This is slightly larger than noted on the preoperative film. Correlation with CT angiogr aphy the abdomen to evaluate the stent graft is recommended when clinically feasible. COMMENT: Quality ID # [id number]: Final reports with documentation of one or more dose reduction techniques (e.g., Automated exposure control, adjustment of the mA and/or kV according to patient size, use of iterative reconstruction technique) TECHNICAL DOCUMENTATION: JOB ID: [id number] 2010 [employer]- All Rights Reserved Reading location - IP/workstation name: [email or web address]
[2020-02-21 13:52] LABS: ABSOLUTE BASOPHILS # (AUTO) 0.1 10^3/uL (0.0-0.2); ABSOLUTE EOSINOPHILS # (AUTO) 0.2 10^3/uL (0.0-0.6); ABSOLUTE LYMPHOCYTES (AUTO) 0.7 10^3/uL (0.5-4.7); ABSOLUTE MONOCYTES (AUTO) 1.1 10^3/uL (0.1-1.4); ABSOLUTE NEUT (AUTO) 10.5 10^3/uL (1.7-8.2); BASOPHILS % (AUTO) 0.7 % (0-2); EOSINOPHILS % (AUTO) 1.4 % (0-6); HEMATOCRIT 43.6 % (37.9-51.0); HEMOGLOBIN 15.4 g/dL (13.5-17.0); LYMPHOCYTES % (AUTO) 5.4 % (13-45); MEAN CORPUSCULAR HEMOGLOBIN 30.8 pg (27.0-33.4); MEAN CORPUSCULAR HGB CONC 35.2 g/dL (32.0-36.0); MEAN CORPUSCULAR VOLUME 87 fl (80-97); MONOCYTES % (AUTO) 8.7 % (3-13); PLATELET COUNT 295 10^3/uL (150-450); RED BLOOD COUNT 4.99 10^6/uL (4.35-5.55); RED CELL DISTRIBUTION WIDTH 15.7 % (11.5-14.0); SEGMENTED NEUTROPHILS % (AUTO) 83.8 % (42-78); TOTAL CELLS COUNTED % (AUTO) 100 %; WHITE BLOOD COUNT 12.5 10^3/uL (4.0-10.5)
[2020-02-21 13:56] LABS: APPEARANCE,URINE SLIGHTLY-CLOUDY; BILIRUBIN,URINE NEGATIVE (NEGATIVE); COLOR,URINE YELLOW; GLUCOSE, URINE NEGATIVE (NEGATIVE); KETONES,URINE NEGATIVE (NEGATIVE); LEUKOCYTE ESTERASE,URINE TRACE (NEGATIVE); NITRITE,URINE NEGATIVE (NEGATIVE); PROTEIN,URINE 30 mg/dL (NEGATIVE); URINE SPECIFIC GRAVITY 1.014
[2020-02-21] MEDS ORDERED: CEFTRIAXONE 1 GM/D5W RTU 1 GM/50 ML RTUPB IV ONE (14:15)
[2020-02-21] MEDS ORDERED: MORPHINE SULFATE 10 MG/ML INJ IV ONE (14:22)
[2020-02-21 14:23] LABS: ALBUMIN 4.2 g/dL (3.5-5.0); ALKALINE PHOSPHATASE 113 U/L (38-126); ANION GAP 10 (5-19); ASPARTATE AMINO TRANSFERASE 25 U/L (17-59); BILIRUBIN,TOTAL 0.7 mg/dL (0.2-1.3); BLOOD UREA NITROGEN 24 mg/dL (7-20); CALCIUM 9.8 mg/dL (8.4-10.2); CARBON DIOXIDE 27 mmol/L (22-30); CHLORIDE 103 mmol/L (98-107); GLUCOSE 123 mg/dL (75-110); POTASSIUM 3.9 mmol/L (3.6-5.0); TOTAL PROTEIN 6.9 g/dL (6.3-8.2)
[2020-02-21 15:55] VITALS: BP 127/74
== END 2020-02-21 15:52 | disposition home or self-care (01) ==
LOC: ER 12:36
DX: N20.1 Calculus of ureter (principal); R10.9 Unspecified abdominal pain; R11.2 Nausea with vomiting, unspecified; F17.200 Nicotine dependence, unspecified, uncomplicated; E78.00 Pure hypercholesterolemia, unspecified; I10 Essential (primary) hypertension; J44.9 Chronic obstructive pulmonary disease, unspecified; E11.9 Type 2 diabetes mellitus without complications; Z88.2 Allergy status to sulfonamides; Z90.49 Acquired absence of other specified parts of digestive tract
CPT/HCPCS: 99284; 96375; 96365; 36415; 87086; 85025; 80053; 81001; 74176; J1885; J2270; J2405; J0696